=== PATIENT | male | born 1975 | race African-American/Black ===

== ENCOUNTER 2025-01-13 16:31 | Emergency (ER) | payer OTHER, SELFPAY ==
--- NOTE | 2025-01-13 | ECG_ITS ---
Test Reason : DIZZINESS Blood Pressure : */* mmHG Vent. Rate : 68 BPM Atrial Rate : 68 BPM P-R Int : 230 ms QRS Dur : 102 ms QT Int : 412 ms P-R-T Axes : 53 -19 3 degrees QTcB Int : 438 ms Sinus rhythm with 1st degree A-V block Minimal voltage criteria for LVH, may be normal variant ( R in aVL ) ST elevation, consider early repolarization, pericarditis, or injury Abnormal ECG No previous ECGs available Referred By: Generic ED Physician Electronically Signed By: PHANI YEPEZ MD
[2025-01-13 16:38] VITALS: BP 104/73; PULSE 73; RESP 16; TEMP 35.6; O2SAT 99; BMI 29.4
[2025-01-13 17:09] LABS: Basophils Percent Auto 0.5 % (0-2); Eosinophils Absolute Auto 0.1 X10*3/uL (0.0-0.4); Eosinophils Percent Auto 1.2 % (0-4); Hemoglobin 14.1 g/dl (14.0-18.0); Imm Gran Abs Auto 0.01 X10*3/uL (0.00-0.03); Imm Gran Pct Auto 0.2 % (0.0-0.4); Lymphocytes Absolute Auto 3.5 X10*3/uL (1.2-4.9); MANUAL DIFF FLAG SCAN; Mean Corpuscular HGB Conc 32.8 g/dl (31.0-36.0); Mean Corpuscular Hemoglobin 27.7 pg (27.0-33.0); Mean Corpuscular Volume 84.5 fL (80.0-98.0); Mean Platelet Volume 10.7 fL (9.4-12.4); Monocytes Absolute Auto 0.5 X10*3/uL (0.1-1.2); Monocytes Percent Auto 8.3 % (2-11); Neutrophils Absolute Auto 1.7 x10*3/uL (2.0-8.3); Neutrophils Percent Auto 28.8 % (45-73); Platelet Count 189 X10*3/uL (160-400); Red Blood Count 5.09 X10*6/uL (4.60-5.80); Red Cell Distribution Width 13.2 % (11.0-16.0); SCAN SMEAR FLAG 1; White Blood Count 5.8 X10*3/uL (4.8-10.8)
[2025-01-13 17:15] LABS: Alanine Aminotransferase 21 U/L (0-40); Albumin Level 4.5 g/dL (3.5-5.0); Alkaline Phosphatase 72 U/L (39-117); Anion Gap 16 (12-20); Aspartate Amino Transferase 21 U/L (5-37); Bilirubin Total 0.6 mg/dL (0.0-1.0); Blood Urea Nitrogen 10 mg/dL (9-16); Calcium 9.5 mg/dL (8.4-10.2); Carbon Dioxide 24 mmol/L (22-29); Chloride 104 mmol/L (96-108); Creatinine Clr Calc Pharmacy 102.1; Estimated Glomerular Filt Rate > 60; Ethanol 125 mg/dL; Glucose Random 225 mg/dL (60-115); Magnesium 2.1 mg/dL (1.6-2.6); Sodium 141 mmol/L (135-145); Total Protein 7.4 g/dL (6.5-8.0)
[2025-01-13 17:27] LABS: Troponin-I High Sensitivity < 2.7 ng/L (<3.5-35.0)
[2025-01-13 17:36] LABS: Beta-Hydroxybutyrate 0.15 mmol/L (0.02-0.27)
[2025-01-13 17:39] VITALS: BP 103/69; PULSE 76; RESP 18; O2SAT 98
[2025-01-13 17:46] LABS: SLIDE REVIEW VERIFIED
--- NOTE | 2025-01-13 17:52 | PC.NURSE ---
patient a&ox3, iv inserted, labs previously drawn, aoc director intelligence officer applied-nsr on monitor, vss, pt states I am feeling so much better now rr equal/non labored, lungs clear, pt awaiting eval by provider, call carrion within reach, family at bedside, plan of care ongoing
--- NOTE | 2025-01-13 18:04 | ED.SYNCOPE ---
HPI - Syncope General Chief Complaint: Dizziness Stated Complaint: near syncope Time Seen by Provider: 01/13/25 18:04 Source: patient Mode of arrival: ambulatory Limitations: no limitations History of Present Illness ED Provider: Jack Robin DO HPI narrative: 49-year-old male with past medical history of hypertension, hyperlipidemia and insulin-dependent type 2 diabetes presents to the ED with fiancee due to sudden-onset nausea, and dizziness without syncope, chest discomfort, dyspnea or exertional symptoms at approximately 16:30. These symptoms occurred shortly after eating fish and chips at a restaurant. The patient reports significant improvement in his symptoms without medications. He admits to 3 alcoholic beverages and cannabis prior to arrival. He denies lower extremity swelling, history of PE or DVT or pleuritic chest pain. Related Data Allergies Allergy/AdvReac Type Severity Reaction Status Date / Time No Known Allergies Allergy Verified 01/13/25 16:41 Review of Systems Review of Systems: Yes all other systems are reviewed and are negative [facility] Past Medical History Medical History (Updated 01/13/25 @ 19:33 by Jack Robin DO) Hypertension DM type 2 (diabetes mellitus, type 2) Social History Social History Alcohol intake: current Alcohol intake frequency: 0-2 drinks per day Alcohol type: wine Smoked in Last 30 Days: Yes Use of substances other than those prescribed or required for medical reasons: Yes Substance Use Type: Marijuana Substance Use Frequency: Occasionally Advance Directives: No Advance Directives Information Provided: No Do you have a plan to hurt others: No Plan Physical Exam Vital Signs: Vital Signs: Last Vital Signs Temp 96.0 F L 01/13/25 16:38 Pulse 81 01/13/25 18:26 Resp 18 01/13/25 18:26 BP 108/78 01/13/25 18:26 Pulse Ox 96 01/13/25 18:26 O2 Del Method Room Air 01/13/25 18:26 BMI result Body Mass Index 29.4 Constitutional: ?Alert, oriented, speaking in full sentences HEENT: ?Normocephalic, atraumatic. ?Moist mucous membranes Eyes: ?PERRL, EOMI Neck: ?Supple, nontender Chest: ?No chest wall tenderness Respiratory: ?Lungs clear to auscultation, no increased work of breathing Cardio: ?Regular rate and rhythm, no murmur, 2+ radial and DP pulses symmetrically GI: ?Soft, nondistended, nontender Back: ?Normal range of motion, nontender Skin: ?No rash, no lesions Neuro: ?Alert and oriented to person, place and time, moves all 4 extremities, no focal deficits Extremities: ?No swelling or tenderness, full range of motion Psych: ?Calm, alert and cooperative, appropriate behavior Medications Administered Generic Name Dose Route Start Last Admin Trade Name Freq PRN Reason Stop Dose Admin Sodium Chloride 1,000 mls @ 999 mls/hr 01/13/25 19:00 01/13/25 18:56 Ns IV 01/13/25 20:00 999 mls/hr .Q1H1M IWONA Administration Discontinued Medications Generic Name Dose Route Start Last Admin Trade Name Freq PRN Reason Stop Dose Admin Potassium Chloride 40 meq 01/13/25 18:13 01/13/25 18:18 Potassium Chloride Er 20 Meq Tab.Er.Prt PO 01/13/25 18:14 40 meq ONCE ONE Administration Medical Decision Making Medical Decision Making [facility] Narrative: Patient presenting with symptoms, sudden onset shortly prior to arrival. Glucose, there are no signs of DKA. He has mild hypokalemia which was replaced. He has an abnormal ECG but no diagnosis consistent with STEMI or occlusive LA. Initial troponin is negative. Blood pressure mildly low but not hypotensive. Likely secondary to vomiting episodes. We will replace with fluid via IV. Patient tolerated p.o. He has no other remarkable exam or vital sign abnormalities. His risk factors, I have low suspicion for ACS given the lack of chest pain and dyspnea. I also have low suspicion for dissection with equal pulses, lack of pain or discomfort, especially lack of sharp, ripping or tearing pain or syncopal episode. Most likely diagnosis is reaction to food today. Symptoms completely resolve, 2nd troponin unremarkable, patient ambulated to the bathroom without difficulty and has had no desaturation and oxygen. Although he has risk factors again, I have low suspicion for ACS and the patient does not meet criteria for inpatient workup. He will follow up with his primary care provider. He voices clear understanding to return with any worsening symptoms whatsoever. Admission/Observation Consideration of admission/observation: Escalation of care including admission/observation considered Lab Data [facility] Lab Attestation statement: I reviewed the patient's lab results. 01/13/25 16:51 01/13/25 16:51 Labs: Lab Results 01/13/25 01/13/25 01/13/25 Range/Units 16:51 16:57 18:33 WBC 5.8 (4.8-10.8) X10*3/uL RBC 5.09 (4.60-5.80) X10*6/uL Hgb 14.1 (14.0-18.0) g/dl Hct 43.0 (42.0-52.0) % MCV 84.5 (80.0-98.0) fL MCH 27.7 (27.0-33.0) pg MCHC 32.8 (31.0-36.0) g/dl RDW 13.2 (11.0-16.0) % Plt Count 189 (160-400) X10*3/uL MPV 10.7 (9.4-12.4) fL Immature Gran % (Auto) 0.2 (0.0-0.4) % Neut % (Auto) 28.8 L (45-73) % Lymph % (Auto) 61.0 H (20-40) % Cameron % (Auto) 8.3 (2-11) % Eos % (Auto) 1.2 (0-4) % Baso % (Auto) 0.5 (0-2) % Lymph # (Auto) 3.5 (1.2-4.9) X10*3/uL Cameron # (Auto) 0.5 (0.1-1.2) X10*3/uL Eos # (Auto) 0.1 (0.0-0.4) X10*3/uL Baso # (Auto) 0.0 (0.0-0.2) X10*3/uL Abs Immat Gran (auto) 0.01 (0.00-0.03) X10*3/uL Absolute Neuts (auto) 1.7 L (2.0-8.3) x10*3/uL Absolute Nucleated RBC 0.000 (0.0-0.012) X10*3/uL Nucleated RBC % (auto) 0.0 (0.0-0.2) /100WBC Smear Tech's Comments VERIFIED Hold Blue Top SEE NOTE Sodium 141 (135-145) mmol/L Potassium 3.0 L (3.3-5.1) mmol/L Chloride 104 (96-108) mmol/L Carbon Dioxide 24 (22-29) mmol/L Anion Gap 16 (12-20) BUN 10 (9-16) mg/dL Creatinine 1.10 (0.5-1.4) mg/dL Estim Creat Clear Calc 102.1 Estimated GFR > 60 Random Glucose 225 H (60-115) mg/dL Calcium 9.5 (8.4-10.2) mg/dL Magnesium 2.1 (1.6-2.6) mg/dL Total Bilirubin 0.6 (0.0-1.0) mg/dL AST 21 (5-37) U/L ALT 21 (0-40) U/L Alkaline Phosphatase 72 (39-117) U/L Troponin I High Sens < 2.7 < 2.7 (<3.5-35.0) ng/L Total Protein 7.4 (6.5-8.0) g/dL Albumin 4.5 (3.5-5.0) g/dL Beta-Hydroxybutyrate 0.15 (0.02-0.27) mmol/L Ethyl Alcohol 125 mg/dL Independent Interpretation I performed an independent interpretation of an: EKG Interpretation: Normal sinus rhythm at 68 beats per minute, normal axis, LVH, mild prolongation of CT interval, some subtle but nondiagnostic ST elevation in the lateral leads without reciprocal changes exception of subtle ST depression limited to lead 3, no prior for comparison. Repeat ECG shows no changes. Discharge Plan Discharge Clinical Impression: Nausea & vomiting Qualifiers: Vomiting type: unspecified Qualified Code(s): R11.2 - Nausea with vomiting, unspecified Patient Disposition: Home, Self-Care Instructions: Near Syncope (ED), Acute Nausea and Vomiting (ED) Additional Instructions: Your workup today was unremarkable. If you have any symptoms whatsoever such as chest discomfort, difficulty breathing, symptoms when you exert yourself, recurrent nausea, vomiting, sweating, dizziness or passing out episodes, please return to the emergency department immediately. Otherwise, please follow up with your primary care provider early this week for re-evaluation. Print Language: Spanish
[2025-01-13 18:10] VITALS: BP 96/72; PULSE 74; RESP 18; O2SAT 96
--- NOTE | 2025-01-13 18:12 | ECG_ITS ---
Test Reason : SYNCOPE Blood Pressure : */* mmHG Vent. Rate : 74 BPM Atrial Rate : 74 BPM P-R Int : 216 ms QRS Dur : 96 ms QT Int : 398 ms P-R-T Axes : 61 -12 5 degrees QTcB Int : 441 ms Sinus rhythm with 1st degree A-V block Minimal voltage criteria for LVH, may be normal variant ( R in aVL ) Borderline ECG When compared with ECG of 13-Jan-2025 16:47, No significant change was found Referred By: Jack Robin Electronically Signed By: PHANI YEPEZ MD
[2025-01-13] MEDS: Potassium Chloride ER 20 MEQ TAB.ER.PRT 40 MEQ PO (18:18)
[2025-01-13 18:26] VITALS: BP 108/78; PULSE 81; RESP 18; O2SAT 96
[2025-01-13] MEDS: 0.9 % Sodium Chloride 1,000 ML 999 ML IV (18:56)
[2025-01-13 18:57] LABS: Troponin-I High Sensitivity < 2.7 ng/L (<3.5-35.0)
[2025-01-13 20:14] VITALS: BP 120/82; PULSE 76; RESP 16; TEMP 36.1; O2SAT 95
[2025-01-15 10:30] LABS: Glucose, Whole Blood 205 mg/dL (60-115)
== END 2025-01-13 20:18 | disposition home or self-care (01) ==
PROVIDERS: Emergency Provider Emergency Medicine
DX: R11.2 Nausea with vomiting, unspecified (principal); R42 Dizziness and giddiness; I10 Essential (primary) hypertension; E78.5 Hyperlipidemia, unspecified; E11.9 Type 2 diabetes mellitus without complications; Z79.4 Long term (current) use of insulin; Z79.899 Other long term (current) drug therapy
CPT/HCPCS: 36415; 80053; 80307; 82010; 82947; 83735; 84484; 85025; 93005; 96360; 99284; 99285

== ENCOUNTER → 2025-01-13 16:47 | Outpatient (BNV) | payer OTHER, SELFPAY | PROVIDERS: Emergency Provider Emergency Medicine; Visit Provider Internal Medicine Cardiovascular Disease | DX: I44.0 Atrioventricular block, first degree (principal) | CPT/HCPCS: 93010 ==